=== PATIENT | female | born 1990 | race Caucasian/White ===

== ENCOUNTER → 2016-12-30 | Outpatient (CLI) | payer BC ==
[~2016-12-30] MED LIST: IBUP-1427 PO; MTR600X PO; OXYC-57 PO; PREN1TAB29
[2016-12-30 20:15] LABS: URINE APPEARANCE CLEAR (CLEAR); URINE BILIRUBIN NEG (NEG); URINE COLOR YELLOW; URINE EPITHELIAL CELL AUTO >30 /lpf (0-5); URINE NITRITE NEG (NEG); URINE SPECIFIC GRAVITY 1.012 (1.000-1.030); UROBILINOGEN NEG (NEG)
[2016-12-30 20:19] LABS: MANUAL MICROSCOPIC REQUIRED? NO; REVIEW REQ? YES
== END | disposition home or self-care (01) ==
LOC: C.LABSPEC 19:11
PROVIDERS: ATTEND Obstetrics & Gynecology
DX: Z34.03 Encounter for supervision of normal first pregnancy, third trimester (principal)

== ENCOUNTER → 2017-01-25 | Outpatient (CLI) | payer BC ==
[2017-01-25 13:55] LABS: URINE APPEARANCE CLEAR (CLEAR); URINE BILIRUBIN NEG (NEG); URINE COLOR YELLOW; URINE EPITHELIAL CELL AUTO 20-30 /lpf (0-5); URINE NITRITE NEG (NEG); URINE PH 7.5 (4.5-7.5); URINE SPECIFIC GRAVITY 1.008 (1.000-1.030); UROBILINOGEN NEG (NEG)
[2017-01-25 14:00] LABS: MANUAL MICROSCOPIC REQUIRED? NO; REVIEW REQ? NO
[2017-01-29 00:30] LABS: PARVOVIRUS IgG INDEX 4.9 (<0.9); PARVOVIRUS IgM INDEX 0.1 (<0.9)
== END | disposition home or self-care (01) ==
LOC: C.LAB1850 13:14
PROVIDERS: ATTEND Obstetrics & Gynecology
DX: R39.9 Unspecified symptoms and signs involving the genitourinary system (principal); Z20.9 Contact with and (suspected) exposure to unspecified communicable disease; R79.9 Abnormal finding of blood chemistry, unspecified

== ENCOUNTER → 2017-02-24 | Outpatient (CLI) | payer BC | END | disposition home or self-care (01) | LOC: C.LAB1850 16:11 | PROVIDERS: ATTEND Obstetrics & Gynecology | DX: R79.9 Abnormal finding of blood chemistry, unspecified (principal) ==

== ENCOUNTER → 2017-02-24 | Outpatient (CLI) | payer BC | END | disposition home or self-care (01) | LOC: C.LABSPEC 17:50 | PROVIDERS: ATTEND Obstetrics & Gynecology | DX: Z34.03 Encounter for supervision of normal first pregnancy, third trimester (principal) ==

== ENCOUNTER 2017-03-25 20:25 | Inpatient (IN) | payer BC ==
[~2017-03-25] VITALS: Ht 154.9 cm; Wt 71.2 kg
[2017-03-25] MEDS ORDERED: LACTATED RINGER'S 1000ML 1,000 ML IV PRN (20:52)
[2017-03-25] MEDS: LACTATED RINGER'S 1000ML 1,000 ML IV SCH ×2 (21:11→23:04)
[2017-03-25] MEDS ORDERED: PREN1TAB29 (21:12)
[2017-03-25 21:13] LABS: HEMATOCRIT 36.5 % (37-47); MEAN CELL VOLUME 87.5 fL (80-100); MEAN CORPUSCULAR HEMOGLOBIN 29.7 pg (25-34); MEAN PLATELET VOLUME 11.6 fL (7.4-10.4); PLATELET COUNT 143 K/uL (130-400); RED BLOOD COUNT 4.17 M/uL (4.2-5.4)
[2017-03-25 21:14] VITALS: Ht 154.9 cm; Wt 71.2 kg
[2017-03-25] MEDS ORDERED: BUPIVACAINE 0.25% 30 ML VIAL ONE (21:21)
[2017-03-25] MEDS ORDERED: EpHEDrine SULFATE INJ 50 MG/ML AMP ONE (21:21)
[2017-03-25] MEDS ORDERED: FENTANYL 2MCG/ML ROPIV 1.25MG/ML 100ML BAG EPI ONE (21:22)
[2017-03-25] MEDS ORDERED: FENTANYL CITRATE INJ 50 MCG/1 ML 2 ML VIAL ONE (21:22)
[2017-03-25] MEDS ORDERED: LACTATED RINGER'S 1000ML 500 ML IV PRN (22:07)
[2017-03-25] MEDS ORDERED: ONDANSETRON INJ 2 MG/ML 2 ML VIAL IV PRN (22:15)
[2017-03-25] MEDS ORDERED: NALOXONE HCL INJ 0.4 MG/1 ML VIAL/CARP IV PRN (22:15)
[2017-03-25] MEDS ORDERED: DiphenhydrAMINE HCL 50 MG/ML VIAL IV PRN (22:15)
[2017-03-25] MEDS ORDERED: NALBUPHINE HCL INJ 10 MG/ML AMP IV PRN (22:15)
[2017-03-25] MEDS ORDERED: EpHEDrine SULFATE INJ 50 MG/ML AMP IV PRN (22:15)
[2017-03-26] MEDS: FENTANYL 2MCG/ML ROPIV 1.25MG/ML 100ML BAG EPI PRN ×2 (06:53→13:36)
[2017-03-26] MEDS ORDERED: LACTATED RINGER'S 1000ML 500 ML IV PRN (09:37)
[2017-03-26] MEDS ORDERED: OXYTOCIN 30 UNITS/500ML NSS IV PRN (09:45)
[2017-03-26] MEDS: LACTATED RINGER'S 1000ML 1,000 ML IV SCH ×2 (11:25→15:24)
[2017-03-26] MEDS ORDERED: LACTATED RINGER'S 1000ML 1,000 ML IV SCH ×2 (16:51→18:08)
[2017-03-26] MEDS ORDERED: CITRIC ACID/SODIUM CITRATE 15 ML UDC PO ONE (17:00)
[2017-03-26] MEDS ORDERED: OXYTOCIN INJ 10 UNITS/ML VIAL ONE (17:14)
[2017-03-26] MEDS ORDERED: LIDOCAINE/EPINEPHRINE 2% 1:200,000 20 ML SDV ONE (17:14)
[2017-03-26] MEDS ORDERED: CEFAZOLIN IV 2,000 MG in DEXTROSE 5% 50ML 50 ML IV ONE (17:15)
[2017-03-26] MEDS ORDERED: ONDANSETRON INJ 2 MG/ML 2 ML VIAL ONE (17:29)
[2017-03-26] MEDS ORDERED: MoRPHine SULFATE PF 1 MG/ML 10 ML AMP/VIAL ONE (17:48)
[2017-03-26] MEDS ORDERED: PHENYLEPHRINE 100MCG/ML 5ML SYR ONE (17:55)
--- NOTE | 2017-03-26 18:11 | [facility] Post Operative Brief Note ---
Immediate Operative Summary Operative Date March 26, 2017. Pre-Operative Diagnosis FTP Post-Operative Diagnosis FTP Procedure(s) Performed Low segment transverse C/S Surgeon Tc Lining Inserter Surgeon(s) TRAY Balbuena Estimated Blood Loss 800ml Findings OP Specimens Cord gases Drains Solorzano Anesthesia Epidural Complication(s) None Disposition L&D
[2017-03-26] MEDS ORDERED: MEPERIDINE HCL 50 MG/ML CARP IV PRN (18:15)
[2017-03-26] MEDS ORDERED: SUPERCREAM 0.870 % 15GM JAR EXT PRN (18:15)
[2017-03-26] MEDS ORDERED: LANOLIN OINT EXT PRN ×2 (18:15)
[2017-03-26] MEDS ORDERED: HYDROCORTISONE ACETATE 25 MG SUPP PR PRN (18:15)
[2017-03-26] MEDS ORDERED: PROMETHAZINE HCL INJ 25 MG in SODIUM CHLORIDE 0.9% 50ML 50 ML IV PRN (18:15)
[2017-03-26] MEDS ORDERED: MAGNESIUM HYDROXIDE SUSP 30 ML UDC PO PRN (18:15)
[2017-03-26] MEDS ORDERED: SENNA 8.6 MG TAB PO PRN (18:15)
[2017-03-26] MEDS ORDERED: BENZOCAINE 20% AER SPR 82.5 GM CAN EXT PRN (18:15)
[2017-03-26] MEDS ORDERED: MEPERIDINE HCL 25 MG/ML CARP ONE (18:20)
--- NOTE | 2017-03-26 18:27 | Anesthesiology Progress Note ---
Anesthesia Post Op Note Date & Time March 26, 2017 at 18:26 Vital Signs Pain Intensity: 0.0 Notes Mental Status: alert / awake / arousable, participated in evaluation Pt Amnestic to Procedure: Yes Nausea / Vomiting: adequately controlled Pain: adequately controlled Airway Patency, RR, SpO2: stable & adequate BP & HR: stable & adequate Hydration State: stable & adequate Neuraxial Anesthesia: was administered, sensory block is resolving Anesthetic Complications: no major complications apparent
[2017-03-26] MEDS ORDERED: FENTANYL CITRATE INJ 50 MCG/1 ML 2 ML VIAL IV PRN (18:30)
[2017-03-26] MEDS ORDERED: CONTINUE MEDICATION ONE (18:30)
[2017-03-26] MEDS ORDERED: MoRPHine SULFATE PF 1 MG/ML 10 ML AMP/VIAL EPI PRN (18:30)
[2017-03-26] MEDS ORDERED: ONDANSETRON INJ 2 MG/ML 2 ML VIAL IV PRN ×2 (18:30→19:00)
[2017-03-26] MEDS ORDERED: NO NARCOTICS OR SEDATIVES SCH (18:30)
[2017-03-26] MEDS ORDERED: ATROPINE SULFATE 0.1 MG/ML 5ML SYR IV PRN (18:30)
[2017-03-26] MEDS ORDERED: EpHEDrine SULFATE INJ 50 MG/ML AMP IV PRN (18:30)
[2017-03-26] MEDS ORDERED: MEPERIDINE HCL 25 MG/ML CARP IV PRN ×2 (18:30)
[2017-03-26] MEDS ORDERED: KETOROLAC TROMETHAMINE 30 MG/ML VIAL ONE (18:38)
[2017-03-26] MEDS: OXYTOCIN INJ 20 UNITS in LACTATED RINGER'S 1000ML 1,000 ML IV SCH (18:44)
--- NOTE | 2017-03-26 20:37 | HISTORY & PHYSICAL EXAMINATION ---
DATE OF ADMISSION: 03/25/2017 HISTORY OF PRESENT ILLNESS: Holly was admitted by Dr. Tenorio in labor and delivery. At 8:30 in the morning on Tuesday, I received sign out. She stated patient was 7 cm and was not on Pitocin, but had made progress to 7 cm. When I checked, patient was more close to 5 cm on my assessment. We could assess contractions and eventually an IUPC was placed. We did recommend Pitocin as well for augmentation as her contractions spaced. Unfortunately patient got no further than 8 cm and really from a period of noon to 5 p.m. really made no significant progress. There was increase in caput and I recommended , patient agreed. PAST MEDICAL HISTORY: She is healthy. There is Holly's first . She is group B strep negative, AB positive, 40 weeks and 5 days. PAST OBSTETRICAL HISTORY: Never been . PAST SURGICAL HISTORY: No major surgeries. MEDICATIONS: None. DRUG ALLERGIES: None. REVIEW OF SYSTEMS: Negative. PHYSICAL EXAMINATION: VITAL SIGNS: Stable. She is afebrile. CHEST: Clear. CARDIOVASCULAR: Normal rate and rhythm. No audible murmur. ABDOMEN: Gravid. CERVIX: 8 cm, zero to -1 station. heart rate tracing is reassuring type category 1; however, there has been increase in the baseline from the 140s to 160s with reasonable accelerations. IMPRESSION AND PLAN: I did give the option of continuing labor at this stage, so I feel she has made the criteria for failure to progress also with a slight increase in maternal temperature and an increase in heart rate; I have recommended section, she agrees. I discussed the risks including but not limited to the risks of bleeding, infection, injury to bowel, bladder, ureter, vessels, deep vein thrombosis, damage to the baby. We also discussed increased infectious risks in prolonged labor situations. TD
[2017-03-26 20:45] VITALS: BP 138/81; PULSE 89; TEMP 36.9; O2SAT 95
[2017-03-26] MEDS: SIMETHICONE 80 MG CHEW PO SCH (20:45)
[2017-03-26] MEDS: DOCUSATE SODIUM 100 MG CAP PO SCH (20:45)
[2017-03-26 21:30] VITALS: O2SAT 94
[2017-03-26 21:45] VITALS: BP 129/83; PULSE 101; TEMP 36.8; O2SAT 94
[2017-03-26 22:29] VITALS: O2SAT 97
[2017-03-26 22:45] VITALS: BP 128/83; PULSE 99; TEMP 36.8; O2SAT 98
[2017-03-27] VITALS (21 sets, daily range): BP systolic 108–124; BP diastolic 68–84; PULSE 92–120; TEMP 36.4–37.1; O2SAT 90–100
[2017-03-27] MEDS: OXYTOCIN INJ 20 UNITS in LACTATED RINGER'S 1000ML 1,000 ML IV SCH (03:21)
[2017-03-27] MEDS: KETOROLAC TROMETHAMINE 30 MG/ML VIAL IV. PRN ×2 (03:43→09:21)
--- NOTE | 2017-03-27 04:08 | OPERATIVE REPORT ---
DATE OF OPERATION: 03/26/2017 PREOPERATIVE DIAGNOSIS: Failure to progress in labor. POSTOPERATIVE DIAGNOSIS: Failure to progress in labor. PROCEDURE: Low segment transverse section. SURGEON: Mars Montez MD BELT SEWER: TRAY Balbuena. ESTIMATED BLOOD LOSS: 800 mL. FINDINGS: Baby was in occiput posterior position. Normal pelvic anatomy otherwise. SPECIMENS: Cord gases. DRAINS: Solorzano catheter. ANESTHETIC: Epidural. COMPLICATIONS: None. DISPOSITION: L and D. DESCRIPTION OF PROCEDURE: Holly had her epidural anesthesia increased and Solorzano had been inserted by nursing. She was prepped and draped in supine position with a leftward tilt. IV Ancef given. Incision area was found to be and found be adequate. Pfannenstiel incision made with a scalpel, dissecting down through subcutaneous fat to the fascia in the midline. Fascia dissected laterally with curved Walker scissors and then superiorly inferiorly away from the rectus muscles. Rectus muscle split, peritoneal cavity entered in a superior location, opening expanded to allow exposure. Bladder retractor placed. Metzenbaums used to dissect away the bladder flap. Bladder retractor repositioned. Scalpel used to make a low transverse incision on the uterus. Entry into the uterus was then done bluntly with the transfer and pumphouse operator's finger and the incision at the uterus was extended with the transfer and pumphouse operator's finger in the usual fashion. Baby was in occiput posterior position and was delivered by flexion of the head and then pressure on the abdomen. Live vigorous . Cord gases obtained. Cord blood obtained. Placenta removed. IV Pitocin started and uterus firmed up. Uterus was then closed in a 2-layer fashion, running 0 Monocryl locked and second reinforcing 0 Monocryl. There was no extension noted. Urine was clear at this stage of the procedure. After generous irrigation and suction of the cul-de-sac and anterior bladder regions, uterus was placed back in the peritoneal cavity. On reinspection, hemostasis was excellent. Fascia closed with 0 Vicryl, subcutaneous fat irrigated and closed with 3-0 Vicryl and skin closed with 4-0 subcuticular Monocryl. Sponge and instrument counts correct. I attest to the content of the Intraoperative Record and any orders documented therein. Any exceptions are noted below. MTDD
[2017-03-27 06:34] LABS: HEMATOCRIT 25.4 % (37-47); MEAN CELL VOLUME 88.2 fL (80-100); MEAN CORPUSCULAR HEMOGLOBIN 29.5 pg (25-34); MEAN CORPUSCULAR HGB CONC 33.5 g/dl (32-36); MEAN PLATELET VOLUME 10.7 fL (7.4-10.4); PLATELET COUNT 104 K/uL (130-400); RED BLOOD COUNT 2.88 M/uL (4.2-5.4); WHITE BLOOD COUNT 14.75 K/uL (4.8-10.8)
[2017-03-27 07:21] LABS: BASO % 0.1 %; BASO ABS # 0.01 K/uL (0-0.2); COMPLETE YES; EOS % 0.1 %; IG% 0.3 %; LYMPH ABS # 2.06 K/uL (1.2-3.4); NEUT % 81.5 %
--- NOTE | 2017-03-27 07:46 | Progress Note ---
Subjective March 27, 2017. Subjective conversation w/ patient, physical exam, chart review, lab review Voiding: abraham catheter in place Passing Gas: No Lochia: Small Objective Vital Signs Date Time Temp Pulse Resp B/P Pulse Ox O2 Delivery O2 Flow Rate FiO2 03/27/17 06:26 18 94 03/27/17 05:30 16 90 03/27/17 04:30 16 90 03/27/17 03:48 36.4 120 18 122/77 93 Room Air 03/27/17 03:30 20 95 03/27/17 02:40 18 90 03/27/17 01:48 18 97 03/27/17 01:00 16 90 03/27/17 00:14 18 97 03/27/17 00:12 92 Room Air 03/27/17 00:08 36.6 92 18 124/84 97 Room Air 03/27/17 00:00 16 95 03/26/17 22:45 18 98 03/26/17 22:45 36.8 99 18 128/83 98 Room Air 03/26/17 22:29 18 97 03/26/17 21:45 36.8 101 18 129/83 94 Room Air 03/26/17 21:30 20 94 03/26/17 20:45 20 95 03/26/17 20:45 95 Room Air 03/26/17 20:45 36.9 89 20 138/81 95 Room Air Physical Exam General Appearance: WELL-APPEARING Respiratory/Chest: lungs clear Cardiovascular: regular rate, rhythm Abdomen: non tender Fundus: Firm Incision Description: Clean, Dry & Intact Extremities: no calf tenderness Laboratory Results Last 24 Hours Test 03/27/17 06:07 White Blood Count 14.75 K/uL Red Blood Count 2.88 M/uL Hemoglobin 8.5 g/dL Hematocrit 25.4 % Mean Corpuscular Volume 88.2 fL Mean Corpuscular Hemoglobin 29.5 pg Mean Corpuscular Hemoglobin Concent 33.5 g/dl Platelet Count 104 K/uL Mean Platelet Volume 10.7 fL Neutrophils (%) (Auto) 81.5 % Lymphocytes (%) (Auto) 14.0 % Monocytes (%) (Auto) 4.0 % Eosinophils (%) (Auto) 0.1 % Basophils (%) (Auto) 0.1 % Neutrophils # (Auto) 12.02 K/uL Lymphocytes # (Auto) 2.06 K/uL Monocytes # (Auto) 0.59 K/uL Eosinophils # (Auto) 0.02 K/uL Basophils # (Auto) 0.01 K/uL RDW Standard Deviation 43.8 fL RDW Coefficient of Variation 13.6 % Immature Granulocyte % (Auto) 0.3 % Immature Granulocyte # (Auto) 0.05 K/uL Red Blood Cell Morphology Unremarkable Assessment and Plan Post-Op Day#: 1 Continue Routine Care: Somewhat tachycardic. Hb 8.5 Follow closely. DONNA
[2017-03-27] MEDS: PRENATAL VITAMIN TAB PO SCH (09:31)
[2017-03-27] MEDS: DOCUSATE SODIUM 100 MG CAP PO SCH ×2 (09:32→19:57)
[2017-03-27] MEDS: SIMETHICONE 80 MG CHEW PO SCH ×4 (09:32→19:58)
[2017-03-27] MEDS ORDERED: OXYCODONE/ACETAMINOPHEN 5-325 TAB PO PRN (11:45)
[2017-03-27] MEDS ORDERED: ONDANSETRON INJ 2 MG/ML 2 ML VIAL IV PRN (11:45)
[2017-03-27] MEDS ORDERED: DC INTRASPINAL MORPHINE SCH (11:45)
[2017-03-27] MEDS ORDERED: ZOLPIDEM TARTRATE 5 MG TAB PO PRN (11:45)
[2017-03-27] MEDS ORDERED: KETOROLAC TROMETHAMINE 30 MG/ML VIAL IV. PRN (11:45)
[2017-03-27] MEDS ORDERED: MEPERIDINE HCL 50 MG/ML CARP IV PRN ×2 (11:45)
[2017-03-27] MEDS ORDERED: DiphenhydrAMINE HCL 50 MG/ML VIAL IV PRN (11:45)
[2017-03-27] MEDS: IBUPROFEN 600 MG TAB PO PRN ×2 (13:03→19:58)
[2017-03-27] MEDS: OXYCODONE/ACETAMINOPHEN 5-325 TAB PO PRN (13:03)
[2017-03-27] MEDS ORDERED: BISACODYL 5 MG TABEC PO ONE (22:00)
[2017-03-28] MEDS: IBUPROFEN 600 MG TAB PO PRN ×5 (03:26→21:41)
--- NOTE | 2017-03-28 07:17 | Progress Note ---
Subjective March 28, 2017. Subjective conversation w/ patient, physical exam, lab review Ambulation: ambulating normally Voiding: no voiding problems Diet Tolerance: Regular Diet Lochia: Small Feeding Type: Breast Feeding Pain: improves with med Comment: Patient was seen at the bedside. No acute event overnight. Review of Systems Constitutional: No fever Respiratory: No cough, No shortness of breath Cardiac: No chest pain Breast: No breast lump Abdomen: No nausea, No pain, No vomiting Female : No dysuria, No urinary frequency Denies headache Objective Vital Signs Date Time Temp Pulse Resp B/P Pulse Ox O2 Delivery O2 Flow Rate FiO2 03/27/17 23:54 Room Air 03/27/17 23:51 36.5 102 18 108/72 Room Air 03/27/17 15:35 36.8 102 20 108/68 Room Air 03/27/17 15:35 Room Air 03/27/17 11:30 16 99 03/27/17 10:15 18 99 03/27/17 09:15 18 97 03/27/17 08:22 100 Room Air 03/27/17 08:18 37.1 118 18 120/80 Room Air 03/27/17 08:15 18 97 03/27/17 07:15 18 100 Physical Exam General Appearance: WELL-APPEARING, WD/WN, NO APPARENT DISTRESS Respiratory/Chest: chest non-tender, lungs clear, normal breath sounds, no respiratory distress Cardiovascular: regular rate, rhythm Abdomen: normal bowel sounds, non tender, soft Fundus: Firm, Relation to Umbilicus (abdomen was distended most likely secondary to gas, difficult to appreciate the fundus) Incision Description: Clean, Dry & Intact Extremities: non-tender, no pedal edema, no calf tenderness Laboratory Results Last 24 Hours Test 03/28/17 06:00 Medications Current Inpatient Medications Medications (Trade) Dose Ordered Sig/Emmett Route Start Time Stop Time Status Last Admin Dose Admin Ketorolac Tromethamine (Toradol Inj) 30 mg Q6H PRN IV. 03/27/17 11:45 04/01/17 11:44 Meperidine HCl (Demerol Inj) 75 mg Q4H PRN IV 03/27/17 11:45 04/10/17 11:44 Oxycodone/ Acetaminophen (Percocet 5-325mg Tab) 1 tab Q4H PRN PO 03/27/17 11:45 04/10/17 11:44 03/27/17 13:03 1 TAB Oxycodone/ Acetaminophen (Percocet 5-325mg Tab) 2 tab Q4H PRN PO 03/27/17 11:45 04/10/17 11:44 03/28/17 03:27 2 TAB Ibuprofen 600 mg 600 mg Q4H PRN PO 03/26/17 18:15 04/25/17 18:14 03/28/17 03:26 600 MG Promethazine HCl/ Sodium Chloride (Phenergan Inj/ Nss 50ml) 51 ml @ 204 mls/hr Q4H PRN IV 03/26/17 18:15 04/25/17 18:14 Prenat Multivit/ Stereotyper Helper/Iron/Folic Ac ( Vitamin Tab) 1 tab DAILY PO 03/27/17 08:00 04/26/17 07:59 03/27/17 09:31 1 TAB Bisacodyl (Dulcolax Supp) [address] 03/28/17 18:15 04/27/17 18:14 Docusate Sodium (coLACE CAP) 100 mg BID PO 03/26/17 20:00 04/25/17 19:59 03/27/17 19:57 100 MG Magnesium Hydroxide (Milk Of Magnesia Susp) 30 ml HS PRN PO 03/26/17 18:15 04/25/17 18:14 Cocaine HCl (Supercream 0.870% Cr) BID PRN EXT 03/26/17 18:15 04/09/17 18:14 Lanolin (Lanolin Oint) PRN PRN EXT 03/26/17 18:15 04/25/17 18:14 Hydrocortisone Acetate (Anusol Hc Supp) [address] 03/26/17 18:15 04/25/17 18:14 Benzocaine (Dermoplast Aero Spr) 1 appln PRN PRN EXT 03/26/17 18:15 04/25/17 18:14 Zolpidem Tartrate (Ambien Tab) 5 mg HSZ PRN PO 03/27/17 11:45 04/26/17 11:44 Simethicone (Mylicon Chew Tab) 80 mg QID PO 03/26/17 20:51 04/25/17 20:59 03/27/17 19:58 80 MG Diphenhydramine HCl (Benadryl Cap) 25 mg QID PRN PO 03/27/17 11:45 04/26/17 11:44 Diphenhydramine HCl (Benadryl Inj) 25 mg QID PRN IV 03/27/17 11:45 04/26/17 11:44 Senna (Senokot Tab) 17.2 mg HS PRN PO 03/26/17 18:15 04/25/17 18:14 Ondansetron HCl (Zofran Inj) 4 mg Q4H PRN IV 03/26/17 19:00 04/25/17 18:59 Meperidine HCl (Demerol Inj) 50 mg Q4H PRN IV 03/27/17 11:45 04/10/17 11:44 Assessment and Plan Post-Op Day#: 2 Continue Routine Care: A/P: This is a 26 y/o female, , s/p . She is ambulating and clinically stable. Plan: - Vitals signs are reviewed and WNL (Tmax 36.8 ) - Last Hgb is 8.5 (this morning lab pending) - Blood type AB+, GBS neg, Rubella Immune - Routine care - Encourage ambulation, monitor and control pain with medication as needed , continue with regular diet as tolerated and monitor lochia - Stool softeners and sitz bath recommended - Encourage breast feeding and educate about breast feeding Resident Physician Supervision Note: I interviewed and examined the patient. Discussed with Dr. Freeman and agree with findings and plan as documented in the note. Any exceptions or clarifications are listed here: [None] Documented By: Masr Montez
[2017-03-28 07:39] VITALS: BP 114/81; PULSE 105; TEMP 36.9; O2SAT 99
[2017-03-28] MEDS: SIMETHICONE 80 MG CHEW PO SCH ×4 (08:12→20:19)
[2017-03-28] MEDS: OXYCODONE/ACETAMINOPHEN 5-325 TAB PO PRN ×2 (08:13→21:40)
[2017-03-28] MEDS: PRENATAL VITAMIN TAB PO SCH (08:34)
[2017-03-28] MEDS: DOCUSATE SODIUM 100 MG CAP PO SCH ×2 (08:34→20:19)
[2017-03-28 09:02] LABS: HEMATOCRIT 26.3 % (37-47)
[2017-03-28 15:40] VITALS: BP 112/77; PULSE 97; TEMP 36.6; O2SAT 99
[2017-03-28] MEDS ORDERED: BISACODYL 10 MG SUPP PR PRN (18:15)
[2017-03-28 23:45] VITALS: BP 109/75; PULSE 89; TEMP 36.4; O2SAT 98; O2SAT 99
[2017-03-29] MEDS: IBUPROFEN 600 MG TAB PO PRN ×2 (02:56→07:54)
--- NOTE | 2017-03-29 06:28 | Progress Note ---
Subjective March 29, 2017. Subjective conversation w/ patient, physical exam, lab review Ambulation: ambulating normally Voiding: no voiding problems Passing Gas: Yes Diet Tolerance: Regular Diet Lochia: Small Feeding Type: Breast Feeding Pain: improves with med Comment: Patient was seen at the bedside. No acute event overnight. Review of Systems Constitutional: No fever Respiratory: No cough, No shortness of breath Cardiac: No chest pain Breast: No breast lump Abdomen: No nausea, No pain, No vomiting Female : No dysuria, No urinary frequency Denies headache Objective Vital Signs Date Time Temp Pulse Resp B/P Pulse Ox O2 Delivery O2 Flow Rate FiO2 03/28/17 23:45 36.4 89 20 109/75 98 Room Air 03/28/17 23:45 99 Room Air 03/28/17 15:40 36.6 97 18 112/77 99 Room Air 03/28/17 15:40 99 Room Air 03/28/17 07:39 36.9 105 18 114/81 99 Room Air Physical Exam General Appearance: WELL-APPEARING, WD/WN, NO APPARENT DISTRESS Respiratory/Chest: chest non-tender, lungs clear, normal breath sounds, no respiratory distress Cardiovascular: regular rate, rhythm Abdomen: normal bowel sounds, non tender, soft Fundus: Firm, Relation to Umbilicus (at the U) Incision Description: Clean, Dry & Intact Extremities: non-tender, no pedal edema, no calf tenderness Laboratory Results Last 24 Hours Test 03/28/17 08:53 Hemoglobin 8.7 g/dL Hematocrit 26.3 % Medications Current Inpatient Medications Medications (Trade) Dose Ordered Sig/Emmett Route Start Time Stop Time Status Last Admin Dose Admin Ketorolac Tromethamine (Toradol Inj) 30 mg Q6H PRN IV. 03/27/17 11:45 04/01/17 11:44 Meperidine HCl (Demerol Inj) 75 mg Q4H PRN IV 03/27/17 11:45 04/10/17 11:44 Oxycodone/ Acetaminophen (Percocet 5-325mg Tab) 1 tab Q4H PRN PO 03/27/17 11:45 04/10/17 11:44 03/28/17 21:40 1 TAB Oxycodone/ Acetaminophen (Percocet 5-325mg Tab) 2 tab Q4H PRN PO 03/27/17 11:45 04/10/17 11:44 03/28/17 03:27 2 TAB Ibuprofen 600 mg 600 mg Q4H PRN PO 03/26/17 18:15 04/25/17 18:14 03/29/17 02:56 600 MG Promethazine HCl/ Sodium Chloride (Phenergan Inj/ Nss 50ml) 51 ml @ 204 mls/hr Q4H PRN IV 03/26/17 18:15 04/25/17 18:14 Prenat Multivit/ [place]/Iron/Folic Ac ( Vitamin Tab) 1 tab DAILY PO 03/27/17 08:00 04/26/17 07:59 03/28/17 08:34 1 TAB Bisacodyl (Dulcolax Supp) 10 mg PRN PRN [place] 03/28/17 18:15 04/27/17 18:14 Docusate Sodium (coLACE CAP) 100 mg BID PO 03/26/17 20:00 04/25/17 19:59 03/28/17 20:19 100 MG Magnesium Hydroxide (Milk Of Magnesia Susp) 30 ml HS PRN PO 03/26/17 18:15 04/25/17 18:14 Cocaine HCl (Supercream 0.870% Cr) BID PRN EXT 03/26/17 18:15 04/09/17 18:14 Lanolin (Lanolin Oint) PRN PRN EXT 03/26/17 18:15 04/25/17 18:14 Hydrocortisone Acetate (Anusol Hc Supp) 25 mg BID PRN [place] 03/26/17 18:15 04/25/17 18:14 Benzocaine (Dermoplast Aero Spr) 1 appln PRN PRN EXT 03/26/17 18:15 04/25/17 18:14 Zolpidem Tartrate (Ambien Tab) 5 mg HSZ PRN PO 03/27/17 11:45 04/26/17 11:44 Simethicone (Mylicon Chew Tab) 80 mg QID PO 03/26/17 20:51 04/25/17 20:59 03/28/17 20:19 80 MG Diphenhydramine HCl (Benadryl Cap) 25 mg QID PRN PO 03/27/17 11:45 04/26/17 11:44 Diphenhydramine HCl (Benadryl Inj) 25 mg QID PRN IV 03/27/17 11:45 04/26/17 11:44 Senna (Senokot Tab) 17.2 mg HS PRN PO 03/26/17 18:15 04/25/17 18:14 Ondansetron HCl (Zofran Inj) 4 mg Q4H PRN IV 03/26/17 19:00 04/25/17 18:59 Meperidine HCl (Demerol Inj) 50 mg Q4H PRN IV 03/27/17 11:45 04/10/17 11:44 Assessment and Plan Post-Op Day#: 3 Continue Routine Care: A/P: This is a 26 y/o female, , s/p . She is ambulating and clinically stable to discharge. - Vital signs are reviewed and WNL (Tmax 36.9 ) - Last Hgb 8.7 - Blood type AB+, GBS neg, Rubella Immune - No signs of depression. - Routine care - Discussed resting, feeding, pain control, mastitis, control, follow up in 6 weeks and reasons to call sooner, if necessary. - Continue with pain medication as needed, and continue vitamins. - Encourage breast feeding and educate about breast feeding - Patient understands and keen for home. - Plan to discharge home Resident Physician Supervision Note: I interviewed and examined the patient. Discussed with Dr. Freeman and agree with findings and plan as documented in the note. Any exceptions or clarifications are listed here: [None] Documented By: Kingston Mccabe
--- NOTE | 2017-03-29 06:29 | Discharge Instructions ---
Discharge Instructions Date of Service March 28, 2017. Admission Reason for Admission: Normal Labor And Delivery Discharge Discharge Diagnosis / Problem: s/p Discharge Goals Goal(s): Routine recovery after Medications Continue Dispensed Medications: supercream, dermaplast, tucks, lansinoh Activity Recommendations Activity Limitations: as noted below . Instructions / Follow-Up Instructions / Follow-Up ACTIVITY RECOMMENDATIONS: * Gradual return to full activity over the next 2-3 weeks. * No lifting - nothing heavier than baby over the next 2-3 weeks. * Do not engage in vigorous exercise, sexual activity or sports until cleared by your physician. * Do not drive or operate any motorized equipment until cleared by your physician. * You may shower/bathe daily. MEDICATIONS: For discomfort or pain, you may use Acetaminophen (Tylenol), Ibuprofen (Advil), or Naproxen (Aleve) following the package directions. For constipation you may use Colace following the package directions. BREAST CARE: If you are not breast feeding: * Wear a supportive bra 24 hours a day for one to two weeks. * Avoid stimulating your breasts and nipples as much as possible during the first few weeks after delivery. * When taking a shower, have the warm water hit your back, not breasts. * When your breasts feel full, apply ice packs. Usually three to four times a day helps ease the discomfort. * Take a mild pain medication (Tylenol / Motrin) when you are uncomfortable. If breast feeding: * Use breast milk to lubricate nipples. Lansinoh cream may be used for sore nipples. You do not need to remove cream prior to breast feeding. If using a different brand of cream, check the label for directions regarding removal of cream prior to nursing. * Wear a supportive bra. * If having problems with breasts or breast feeding, call a investigations consultant or your health care provider. SPECIAL CARE INSTRUCTIONS: When you are discharged from the hospital, it is important for you to follow the instructions listed below: * During the first week at home, you should be able to care for yourself and your baby. In addition, the usual light household activities are encouraged. * Limit your activities to the way you feel. Do not try to clean the house or move furniture. Be sensible. * If you actively engage in sports and have done so up until the time of your delivery, you may resume these activities as soon as you feel able. This may take up to one month or even longer. Use good judgment. * Continue to take your vitamins for at least six weeks after the of your baby. * Your diet need not be limited unless you were on a special diet before your delivery. Breast-feeding mothers need around 2500 calories per day and at least 64-80 ounces of fluid per day (8 to 10 glasses). * You should eat foods from the four major food groups. Crash diets or fad diets are to be avoided. Eating lean meats, fresh fruits and vegetables, low-fat dairy products, high fiber foods and a regular exercise program, will help you get back to your pre- weight without putting your health at risk. * Constipation is sometimes a problem after delivery. Take a mild laxative as needed. If breast feeding, Milk of Magnesia is acceptable to use. You may use a suppository or Fleets enema. * A daily shower or tub bath is suggested. Wash incision daily with warm soapy water and pat dry. It doesn't need to be covered unless drainage is present. * A bloody vaginal discharge will usually continue until around four weeks . A small amount of bleeding may continue for as long as six weeks. Vaginal discharge changes from the bright red bleeding after delivery to pink then brownish and finally yellowish-pink before becoming white and disappearing. * Bleeding may increase with activity. Your first period may come in 4-8 weeks. If you are breast feeding, your period may be delayed even longer. * [place] (sex) can begin whenever both you and your partner feel comfortable and do not have any form of genital infection. It is recommended that you wait at least six weeks for internal and external healing to occur. If you have questions, please talk to your health care practitioner. A condom should be used to prevent infection and . * Foreplay, gentle intercourse and lubrication is very important the first several times to prevent pain. A water-based lubricant such as K-Y jelly or Astroglide may be used. * If you have RH negative blood and your baby is RH positive, you will receive RHOGAM by injection prior to discharge. The nurse will give you a card to keep with you that has the date and place that you received RHOGAM after delivery. * During your care, you had a Rubella screen done to check for the presence of rubella antibodies in your blood. If your test was negative, you will receive a Rubella vaccine prior to discharge. This vaccine may cause a fever, soreness at the injection site and flu-like symptoms. If these symptoms persist, notify your health care practitioner. is not advised for one month after a Rubella vaccine. * Verbalizes understanding of car seat law as reviewed with patient nursing. * Car Seat hand-out given and reviewed with patient by nursing. * Shaken baby information reviewed with patient by nursing. Call you doctor if: * Heavy bleeding (saturating several pads an hour) or passing clots the size of your fist. * A fever >101 degrees F (38.3 degrees C) on two occasions four hours apart and /or chills. * Unusual pain in the pelvic or vaginal areas. * Call the doctor for any increased redness, drainage or swelling around the incision and any pain unrelieved by prescribed pain medication. * "Baby Blues" lasting longer than two weeks. If you have any questions or concerns, call your health care practitioner at . FOLLOW UP VISIT: * Please call the office at to schedule a 6 week examination. It is important you keep this appointment. It is important for you to make arrangements for either yearly or twice yearly check-ups thereafter. Current Hospital Diet Patient's current hospital diet: Regular OB Diet Discharge Diet Recommended Diet: Regular Diet Procedures Procedures Performed: Primary lower uterine transverse caesarean section with delivery of live female child at 1742. Pending Studies Studies pending at discharge: no Medical Emergencies . Who to Call and When: Medical Emergencies: If at any time you feel your situation is an emergency, please call [phone] immediately. . Non-Emergent Contact Non-Emergency issues call your: Community Resource Consultant Call Non-Emergent contact if: you have a fever, temperature is above 101 . . "Provider Documentation" section prepared by Chiara Freeman. . VTE Core Measure Inpt VTE Proph given/why not?: Treatment not indicated
[2017-03-29] MEDS ORDERED: OXYC-57 PO ×2 (06:51→09:47)
[2017-03-29] MEDS ORDERED: MTR600X PO (06:51)
[2017-03-29] MEDS: PRENATAL VITAMIN TAB PO SCH (07:53)
[2017-03-29] MEDS: DOCUSATE SODIUM 100 MG CAP PO SCH (07:53)
[2017-03-29] MEDS: SIMETHICONE 80 MG CHEW PO SCH (07:53)
[2017-03-29 08:30] VITALS: BP 123/83; PULSE 86; TEMP 36.7
[2017-03-29] MEDS ORDERED: IBUP-1427 PO (09:47)
[2017-03-29 11:40] VITALS: BP_DIAS 83; PULSE 86; TEMP 36.7
--- NOTE | 2017-04-01 09:34 | DISCHARGE SUMMARY ---
DATE OF OPERATION: 03/29/2017 Holly had a section on 03/26/2017. The operative note has been dictated. She was discharged on 03/29/2017. At that time she was assessed by the team including Dr. Freeman the resident and she was doing well. Specifically, she was ambulating, tolerating an oral diet. Her pain was well controlled. She had no extremity pain and minimal bleeding. PHYSICAL EXAMINATION: VITAL SIGNS: Stable. She was afebrile. ABDOMEN: Incision was clean, dry and intact. EXTREMITY EXAMINATION: Negative. IMPRESSION AND PLAN: Postop day 3 from section, discharged home on appropriate pain medication and told to follow up in the office. TD
== END 2017-03-29 11:40 | disposition home or self-care (01) | DRG 766 ==
LOC: C.OPB 20:25 → C.LD 20:26 → C.OPB 20:57 → C.OBG 03-26 20:50
PROVIDERS: ADMIT Obstetrics & Gynecology; ATTEND Obstetrics & Gynecology
PROC: 10H07YZ Insertion of Other Device into Products of Conception, Via Natural or Artificial Opening (ICD-10-PCS; principal; 2017-03-26 17:15)
PROC: 10D00Z1 Extraction of Products of Conception, Low, Open Approach (ICD-10-PCS; principal; 2017-03-26 17:15)
DX: O62.2 Other uterine inertia (principal); O90.89 Other complications of the puerperium, not elsewhere classified; Z37.0 Single live birth; O48.0 Post-term pregnancy; R11.10 Vomiting, unspecified; O75.89 Other specified complications of labor and delivery; R00.0 Tachycardia, unspecified; Z3A.40 40 weeks gestation of pregnancy

== ENCOUNTER → 2017-06-01 | Outpatient (CLI) | payer BC ==
[~2017-06-01] MED LIST changes: -IBUP-1427 PO
== END | disposition home or self-care (01) ==
LOC: C.LAB1850 14:23
PROVIDERS: ATTEND Obstetrics & Gynecology
DX: Z33.1 Pregnant state, incidental (principal)

== ENCOUNTER → 2017-11-24 | Day surgery (SDC) | payer BC ==
[2017-11-03 15:05] VITALS: Ht 154.9 cm; Wt 62.7 kg
[~2017-11-24] VITALS: Ht 154.9 cm; Wt 62.7 kg
[~2017-11-24] MED LIST changes: +BCPILLS PO; +LIDOCAINE HCL 2% 2 ML VIAL (20MG/ML) ONE; +MIDAZOLAM HCL 1 MG/ML 2ML VIAL ONE; -MTR600X PO; +MULT1CHW39 PO; +ONDANSETRON INJ 2 MG/ML 2 ML VIAL ONE; -OXYC-57 PO; -PREN1TAB29; +PROPOFOL IV EMULSION 10 MG/ML 20 ML VIAL IV ONE
--- NOTE | 2017-11-24 15:24 | Endo History and Physical ---
History & Physical Date of Service: Nov 24, 2017. Chief Complaint: Diarrhea Referring Physician: Latisha Jensen History of Present Illness 27 yo CF who presents for colonoscopy secondary to diarrhea. Past Surgical History Hx Cardiac Surgery: No Hx Internal Defibrillator: No Hx Pacemaker: No Hx Abdominal Surgery: Yes () Hx of Implantable Prosthesis: No Hx Post-Op Nausea and Vomiting: No Hx Cancer Surgery: No Hx Thoracic Surgery: No Hx Orthopedic: No Hx Urinary Tract Surgery: No Family History IBD Social History Smoking Status: Never Smoker Hx Substance Use: No Hx Alcohol Use: Yes ("SOCIALLY") Allergies Coded Allergies: Adhesives (Verified Allergy, Unknown, SKIN TEARS, 11/24/17) NO KNOWN DRUG ALLERGIES (Verified Allergy, Unknown, ., 11/24/17) Current Medications Reported Home Medications Medications Dose Route/Sig Max Daily Dose Days Date Category Multivitamin Gummies Wome (Multiple Vitamins W/ Minerals) 1 Chw Chw 1 Dose PO QPM 11/03/17 Reported Control Pills (Miscellaneous) Tab 1 Tab PO HS 11/03/17 Reported Vital Signs Weight (Kilograms): 62.73 Height (Feet): 5 Height (Inches): 1 Date Time Temp Pulse Resp B/P (MAP) Pulse Ox O2 Delivery O2 Flow Rate FiO2 11/24/17 14:51 37.0 88 18 140/76 (97) 100 Room Air Physical Exam General Appearance: WD/WN, no apparent distress Respiratory/Chest: Auscultation: breath sounds normal Cardiovascular: Heart Auscultation: RRR Abdomen: Bowel Sounds: normal Inspection & Palpation: soft, non-distended, no tenderness, guarding & rebound Assessment and Plan Assessment: 27 yo CF who presents for colonoscopy secondary to diarrhea. Plan: Proceed with colonoscopy.
--- NOTE | 2017-11-24 16:02 | Discharge Instructions ---
Endoscopy Patient Instructions Date / Procedure(s) Performed Nov 24, 2017. Colonoscopy Allergy Information Coded Allergies: Adhesives (Verified Allergy, Unknown, SKIN TEARS, 11/24/17) NO KNOWN DRUG ALLERGIES (Verified Allergy, Unknown, ., 11/24/17) Discharge Date / Findings Nov 24, 2017. Random colon biopsies Stool studies collected Medication Instructions OK to resume all medications today as prescribed Reported Home Medications Medications Dose Route/Sig Max Daily Dose Days Date Category Multivitamin Gummies Wome (Multiple Vitamins W/ Minerals) 1 Chw Chw 1 Dose PO QPM 11/03/17 Reported Control Pills (Miscellaneous) Tab 1 Tab PO HS 11/03/17 Reported Provider Instructions Activity Restrictions - No exercising or heavy lifting for 24 hours. - Do not drink alcohol the day of the procedure. - Do not drive a car or operate machinery until the day after the procedure. - Do not make any important decisions or sign important papers in 24 hours after the procedure. Following Day: - Return to full activity which may include returning to work/school. Diet Start your diet with liquids and light foods (jello, soup, juice, toast). Then eat your usual diet if not nauseated. Treatment For Common After Affects For mild abdominal pain, bloating, or excessive gas: - Rest - Eat lightly - Lie on right side Follow-Up Information Follow-up with Latisha Jensen as scheduled Anesthesia Information What You Should Know You have had a procedure that required some medicine to reduce anxiety and discomfort. This treatment is called moderate sedation. After receiving the treatment, you may be sleepy, but you will be able to breathe on your own. The effects of the treatment may last for several hours. Follow these instructions along with Activity/Diet recommendations noted above: * Do NOT do anything where dizziness or clumsiness would be dangerous. * Rest quietly at home today, then you can be up and about tomorrow. * Have a responsible person stay with you the rest of today. * You may have had an I.V. today. If so, you may take the dressing off later today. Recommendations Call your doctor if: * Trouble breathing * Continuous vomiting for more than 24 hours * Temperature above 101 degrees * Severe abdominal pain or bloating * Pain not relieved by pain medicine ordered * There is increased drainage or redness from any incision * A large amount of rectal bleeding greater than 2-3 tablespoons. (If you had a polyp/s removed or have hemorrhoids, a small amount of blood - from the rectum is to be expected.) * You have any unanswered questions or concerns. IN THE EVENT OF A SERIOUS EMERGENCY, GO TO THE NEAREST EMERGENCY ROOM Your discharge instructions were prepared by provider Nacho Weiner. Patient Instructions Signature Page Holly Rico Patient (or Guardian) Signature/Date: I have read and understand the instructions given to me by my caregivers. Caregiver/RN/Doctor Signature/Date: The above-named patient and/or guardian has received patient instructions on this date. + Original Patient Signature Page (only) stays with chart. Please make copy for patient.
--- NOTE | 2017-11-24 16:02 | GI REPORT ---
Procedure Date: 11/24/2017 2:52 PM Procedure: Colonoscopy Indications: Chronic diarrhea Medicines: Monitored Anesthesia Care Complications: No immediate complications. Estimated Blood Loss: Estimated blood loss: none. Procedure: Pre-Anesthesia Assessment: - Prior to the procedure, a History and Physical was performed, and patient medications and allergies were reviewed. The patient's tolerance of previous anesthesia was also reviewed. The risks and benefits of the procedure and the sedation options and risks were discussed with the patient. All questions were answered, and informed consent was obtained. Prior Anticoagulants: The patient has taken no previous anticoagulant or antiplatelet agents. ASA Grade Assessment: I - A normal, healthy patient. After reviewing the risks and benefits, the patient was deemed in satisfactory condition to undergo the procedure. After I obtained informed consent, the scope was passed under direct vision. Throughout the procedure, the patient's blood pressure, pulse, and oxygen saturations were monitored continuously. The scope was introduced through the anus and advanced to the terminal ileum. The colonoscopy was performed without difficulty. The patient tolerated the procedure well. The quality of the bowel preparation was good. The terminal ileum, ileocecal valve, appendiceal orifice, and rectum were photographed. Findings: The perianal and digital rectal examinations were normal. The colon (entire examined portion) appeared normal. Several random biopsies were obtained with cold forceps for histology in the entire colon. Fluid aspiration for stool studies was performed in the entire colon. Impression: - The entire examined colon is normal. - Several random biopsies were obtained in the entire colon. - Fluid aspiration was performed. Recommendation: - Resume previous diet. - Continue present medications. - Repeat colonoscopy for surveillance based on pathology results. - Return to primary care physician as previously scheduled. Nacho Weiner, 11/24/2017 4:01:26 PM This report has been signed electronically. Note Initiated On: 11/24/2017 2:52 PM I attest to the content of the Intraoperative Record and orders documented therein, exceptions below
--- NOTE | 2017-11-24 16:14 | Anesthesiology Progress Note ---
Anesthesia Post Op Note Date & Time Nov 24, 2017 at 16:14 Vital Signs Pain Intensity: 0 Vital Signs Past 12 Hours Date Time Temp Pulse Resp B/P (MAP) Pulse Ox O2 Delivery O2 Flow Rate FiO2 11/24/17 15:58 104 18 114/63 (80) 97 Room Air 11/24/17 14:51 37.0 88 18 140/76 (97) 100 Room Air Notes Mental Status: alert / awake / arousable, participated in evaluation Pt Amnestic to Procedure: Yes Nausea / Vomiting: adequately controlled Pain: adequately controlled Airway Patency, RR, SpO2: stable & adequate BP & HR: stable & adequate Hydration State: stable & adequate Anesthetic Complications: no major complications apparent
[2017-11-24 16:18] VITALS: BP 123/70; PULSE 97; O2SAT 98
== END | disposition home or self-care (01) ==
LOC: C.GI 14:29
PROVIDERS: ATTEND Internal Medicine
DX: R19.7 Diarrhea, unspecified (principal); K21.9 Gastro-esophageal reflux disease without esophagitis

== ENCOUNTER 2021-11-10 05:35 | Inpatient (IN) ==
--- NOTE | 2021-11-05 09:38 | Anesthesiology Consultation ---
Date of Service November 05, 2021 Assessment & Plan (1) Encounter for pre-operative examination: COVID screening: Per assessment on 11/05: Travel screen negative, no known COVID-19 positive contacts or current COVID-19 related symptoms. Patient reports wearing mask "most times." Patient had "lingering cold symptoms" and negative rapid home test 10/31. Surgeon arranging preop COVID testing (scheduled 11/07; [place]). Awaiting results. 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 Verified 11/05/21 07:03 Medications Home Medications Medication Instructions Recorded Confirmed Last Taken vit no.95-ferrous 1 tab PO QAM 11/05/21 11/05/21 Unknown fumarate 28 mg-folic acid 800 mcg tablet () Past Medical History Medical History Asthma Childhood, no current issues History of COVID-19 Dx 09/2020 > Symptoms at time: headache, body aches, loss of taste/smell > symptoms resolved except residual loss of taste/smell History of heartburn History of palpitations Occasional palpitations during , OB aware per pt Thrombocytopenia during Mild/borderline (platelets 120 on 11/02/21 labs) Past Family History Family History Sister Hx of sudden , Onset Age: 30 VLCAD (very long-chain acyl-CoA dehydrogenase deficiency) twin sister Past Surgical History Surgical History H/O wisdom tooth extraction History of section History of colonoscopy History of esophagogastroduodenoscopy (EGD) Social History Smoking Status: Never smoker Do You Dip or Chew Tobacco: No Hx Alcohol Use: No Hx Substance Use: No substance use type: does not use Testing Laboratory Results 11/02/21 WBC 7.84 H/H 12.2/36.5 PLATELETS 120 T&S AB Rh positive RBC antibody screen positive (antibody identification- no new alloantibodies identified) 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 Nothing further needed preoperatively from PAT.
[2021-11-10] MEDS ORDERED: LACTATED RINGER'S 1,000 ML IV SCH ×4 (05:45→09:30)
[2021-11-10] MEDS ORDERED: CITRIC ACID/SODIUM CITRATE 15 ML UDC PO SCH (06:00)
[2021-11-10 06:09] LABS: Basophils # (auto) 0.02 K/uL (0-0.2); Basophils % (auto) 0.3 %; Eosinophils # (auto) 0.04 K/uL (0-0.5); Eosinophils % (auto) 0.5 %; Hematocrit (blood only) 36.1 % (37-47); Hemoglobin 12.3 g/dL (12.0-16.0); Immature Granulocytes # (auto) 0.02 K/uL (0.00-0.02); Immature Granulocytes % (auto) 0.3 %; Mean Corpuscular Hemoglobin 30.5 pg (25-34); Mean Corpuscular Hgb Conc 34.1 g/dL (32-36); Mean Corpuscular Volume 89.6 fL (80-100); Mean Platelet Volume 11.2 fL (7.4-10.4); Monocytes # (auto) 0.69 K/uL (0.11-0.59); Monocytes % (auto) 9.1 %; Neutrophils # (auto) 4.31 K/uL (1.4-6.5); Neutrophils % (auto) 56.8 %; Platelet Count 134 K/uL (130-400); RDW Coefficient of Variation 12.6 % (11.5-14.5); Red Blood Count 4.03 M/uL (4.2-5.4); White Blood Count 7.58 K/uL (4.8-10.8)
[2021-11-10] MEDS ORDERED: fentaNYL citrate 100 MCG/2 ML VIAL ONE (06:43)
[2021-11-10] MEDS ORDERED: OXYTOCIN 10 UNITS/ML 10ML VIAL ONE (06:43)
[2021-11-10] MEDS ORDERED: MoRPHine SULFATE PF 1 MG/ML 10 ML AMP/VIAL ONE (06:43)
[2021-11-10] MEDS ORDERED: ONDANSETRON INJ 2 MG/ML 2 ML VIAL ONE (06:43)
[2021-11-10] MEDS ORDERED: PHENYLEPHRINE 100MCG/ML 5ML SYR ONE (06:43)
[2021-11-10] MEDS ORDERED: ceFAZolin 2000MG 2,000 MG/15 ML SYR IV ONE (06:45)
--- NOTE | 2021-11-10 07:31 | History & Physical Bridge Note ---
Date of Service November 10, 2021 History & Physical Bridge Note I have examined the patient, reviewed the History & Physical and in the interval since the performance of the History & Physical I have noted the following changes of clinical significance: no changes noted Patient desires Tubal sterilization. Discussed it is irreversible and she may regret in the future. It may fail and may have ectopic/ tubal which may require surgery. Discussed noin surgcial reversible contraception options like BCP/ Depo infection, IUD's. She understands all and signed an informed consent for Repeat Csection and Bilateral Tubal Ligation. All questions were answered.
[2021-11-10] MEDS ORDERED: NALBUPHINE HCL INJ 10 MG/ML AMP IV PRN (07:59)
[2021-11-10] MEDS ORDERED: MoRPHine SULFATE PF 1 MG/ML 10 ML AMP/VIAL INT SPINAL ONE (07:59)
[2021-11-10] MEDS ORDERED: NALOXONE HCL 0.4 MG/1 ML VIAL/CARP IV PRN (07:59)
[2021-11-10] MEDS ORDERED: diphenhydrAMINE 50 MG/ML VIAL IV PRN (07:59)
[2021-11-10] MEDS ORDERED: ONDANSETRON INJ 2 MG/ML 2 ML VIAL IV PRN ×2 (07:59→09:21)
[2021-11-10] MEDS ORDERED: ePHEDrine sulfate 50 MG/ML AMP IV PRN (07:59)
[2021-11-10] MEDS ORDERED: NALOXONE HCL 0.08 MG in SYRINGE 1.8 ML IV PRN (07:59)
[2021-11-10] MEDS ORDERED: LACTATED RINGER'S 500 ML IV PRN (07:59)
[2021-11-10] MEDS ORDERED: NALOXONE HCL 1 MG in SODIUM CHLORIDE 0.9% 1000ML 1,000 ML IV PRN (07:59)
[2021-11-10] MEDS ORDERED: MoRPHine SULFATE 2 MG/ML CARP IV PRN (07:59)
[2021-11-10] MEDS ORDERED: SODIUM CHLORIDE 0.9% 1000ML 1,000 ML IV SCH (08:00)
[2021-11-10] MEDS ORDERED: NO NARCOTICS OR SEDATIVES SCH (08:00)
[2021-11-10] MEDS ORDERED: MAGNESIUM HYDROXIDE SUSP 30 ML UDC PO PRN (09:21)
[2021-11-10] MEDS ORDERED: SENNA 8.6 MG TAB PO PRN (09:21)
[2021-11-10] MEDS ORDERED: HYDROCORTISONE ACETATE 25 MG SUPP PR PRN (09:21)
[2021-11-10] MEDS ORDERED: BENZOCAINE 20% AER SPR 82.5 GM CAN EXT PRN (09:21)
[2021-11-10] MEDS ORDERED: MEASLES, MUMPS & RUBELLA VIRUS VIAL SQ ONE (09:21)
[2021-11-10] MEDS ORDERED: SUPERCREAM 0.870% 15 GM JAR EXT PRN (09:21)
[2021-11-10] MEDS ORDERED: DIPHTHERIA/TETANUS/PERTUSSIS 0.5 ML SYR/VIAL IM ONE (09:21)
--- NOTE | 2021-11-10 09:25 | Post Operative Brief Note ---
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
--- NOTE | 2021-11-10 09:34 | Anesthesiology Progress Note ---
Date of Service November 10, 2021 Anesthesia Post Procedure Vital Signs Vital Signs: Temp Pulse Resp BP Pulse Ox 11/10/21 09:28 83 105/72 100 11/10/21 09:23 77 100 11/10/21 09:18 81 118/75 100 11/10/21 05:56 36.7 C 98 H 18 131/85 11/10/21 05:50 36.7 C 98 H 18 131/85 Notes Mental Status: alert / awake / arousable and participated in evaluation Patient Amnestic to Procedure: No Nausea / Vomiting: adequately controlled Pain: adequately controlled Airway Patency, RR, SpO2: stable & adequate BP & HR: stable & adequate Hydration State: stable & adequate Neuraxial Anesthesia: was administered and sensory block is resolving Anesthetic Complications: no major complications apparent and Pt Satisfied with anesthetic care
--- NOTE | 2021-11-10 10:49 | Operative Report (OR) ---
DATE OF SURGERY: 11/10/2021. PREOPERATIVE DIAGNOSES: The patient is a 31-year-old 2, para 1-0-0-1, at 39 weeks and 1 day gestation, who has a history of prior section, electing for a repeat section, declined TOLAC/ (/trial of labor after /vaginal after ), desire for permanent sterilization and declined nonsurgical or reversible contraceptive options. POSTOPERATIVE DIAGNOSES: The patient is a 31-year-old 2, para 1-0-0-1, at 39 weeks and 1 day gestation, who has a history of prior section, electing for a repeat section, declined TOLAC/ (/trial of labor after /vaginal after ), desire for permanent sterilization and declined nonsurgical or reversible contraceptive options. PROCEDURE: Repeat low transverse with Pfannenstiel skin incision and bilateral tubal ligation with Jaylon method. SURGEON: Ashwin Garcia MD. BLASTING MINER: Tayla Muller MD. ESTIMATED BLOOD LOSS: 500 mL. DRAINS: Solorzano catheter drained 150 mL of clear urine. ANESTHESIA: Spinal. ANESTHESIOLOGIST: Dr. Govea. COMPLICATIONS: None. FINDINGS: Baby was a viable female delivered at 8:15 a.m. in cephalic presentation, Apgars were 8/9. Maternal findings: Normal uterus, fallopian tubes, and ovaries. There were some adhesions and scar on the rectus fascia from prior procedure. Bladder flap was over the lower uterine segment, peritoneal window in the posterior lower serosa of the uterus, suggesting from endometriosis, no other signs or lesions of endometriosis noted. DESCRIPTION OF PROCEDURE: The patient was taken to the operating room where spinal anesthesia was given without difficulty. She was placed in dorsal supine position with a leftward tilt. She was prepared and draped in the usual sterile fashion. A Pfannenstiel skin incision was made from the old scar, carried through to the layer of fascia with the Bovie. Fascia was incised in the midline and incision extended laterally with the help of Walker scissors. Upper aspect of the fascial incision was grasped with 2 Jamir clamps, elevated and underlying rectus muscles were dissected off sharply with Walker scissors and bluntly with fingers. There were adhesions and scarring between the fascia and the rectus muscles. Those were reduced carefully. Lower aspect of the fascial incision was grasped with 2 Jamir clamps, elevated and underlying rectus muscles were dissected off sharply with Walker scissors and bluntly with fingers. Again, scars were reduced carefully and the lower edges of the rectus muscles were already open and there were thick vessels seen. Those were avoided. Upper part of the rectal muscle opening was entered and the peritoneum was identified, grasped with pickups, and entered sharply with Metzenbaum scissors and then the peritoneal incision was extended superiorly and inferiorly with good visualization of the bladder. A bladder blade was inserted. The bladder serosa was covering the lower segment of the uterus. It was held up and entered sharply from the avascular area and then bladder was dissected off from the lower uterine segment carefully. A bladder blade was reinserted. Lower uterine segment was intact and normal. It was incised in transverse fashion. The incision was extended laterally with the help of fingers. Membranes were ruptured. Clear fluid was obtained. Baby's head was delivered without difficulty. Shoulders were delivered with minimal traction and the baby was vigorously moving and crying. Cord was clamped x2 and cut at 1 minute delay. Baby was handed off to the waiting pediatric team. Cord blood was obtained. Placenta was delivered spontaneously as intact and complete. Uterus was exteriorized and cleared of all clots and debris. This uterine incision was repaired with 0 Vicryl in a running locked fashion and a second imbricating layer was placed with 0 Vicryl in a running locked fashion. Excellent hemostasis was achieved. Then, the right fallopian tube was identified, grasped with Luiz clamps from an avascular site. Mesosalpinx was entered with 2-0 plain catgut and the tube was tied and then a loop was made around the clamps and tied and another tie was placed under the first tie and then 2-3 cm of tube was excised above the first tie and sent for pathology. It was hemostatic. Then attention was turned to the left fallopian tube, which was held with 2 Luiz clamps from an avascular site. Mesosalpinx was entered with 2-0 plain catgut and tube was tied and then a loop was made around the clamps and tied and another tie was placed under the first tie and then again the fallopian tube above the ties was cut and incised and sent for pathology. Base was hemostatic. Then, the posterior cul-de-sac was irrigated with warm normal saline and suctioned. There was a small peritoneal window on the serosa of the posterior lower uterus and it was hemostatic, and the uterus was returned to the abdomen. Incision was checked to be hemostatic again. Fallopian tubes were checked to be hemostatic. Parietal peritoneum was reapproximated with 0 Vicryl in a running fashion and the rectus muscles were reapproximated with the same suture in a running fashion, and under the fascia and over the rectus muscles were hemostatic and the rectus fascia was reapproximated with 0 Vicryl in a running fashion starting from both corners, meeting in the midline. Subcuticular fat tissue was brought together with 3-0 Vicryl in a running fashion and the skin was closed with 4-0 Monocryl in a subcuticular fashion. The patient tolerated the procedure well. Sponge, lap, needle count was correct x3. No complications happened. I was and Dr. Muller was present during the whole procedure. My primary teaching assistant, Dr. Muller, was needed during surgery for retraction, visualization, hemostasis and aid during delivery of infant. Job ID: [id number] [facility]
[2021-11-10] MEDS: KETOROLAC 30 MG/ML VIAL IV PRN ×2 (11:15→17:23)
[2021-11-10] MEDS: OXYTOCIN 20 UNITS in LACTATED RINGER'S 1,000 ML IV SCH ×2 (11:16→20:17)
[2021-11-10] MEDS ORDERED: FLUARIX QUADRIVALENT 0.5 ML SYR IM ONE (12:00)
[2021-11-10] MEDS: SIMETHICONE 80 MG CHEW PO SCH ×3 (12:45→20:18)
[2021-11-10] MEDS ORDERED: PROMETHAZINE HCL 6.25 MG in SODIUM CHLORIDE 0.9% 50 ML IV PRN (15:19)
[2021-11-10] MEDS: DOCUSATE SODIUM 100 MG CAP PO SCH (20:16)
[2021-11-11] MEDS: KETOROLAC 30 MG/ML VIAL IV PRN (01:56)
[2021-11-11] MEDS ORDERED: DC INTRASPINAL MORPHINE ONE (01:59)
[2021-11-11] MEDS ORDERED: KETOROLAC 30 MG/ML VIAL IV PRN (02:00)
[2021-11-11] MEDS ORDERED: MEPERIDINE HCL 50 MG/ML CARP IV PRN (02:00)
[2021-11-11] MEDS ORDERED: PROMETHAZINE HCL 25 MG in SODIUM CHLORIDE 0.9% 50 ML IV PRN (02:00)
[2021-11-11] MEDS ORDERED: diphenhydrAMINE Capsule 25 MG CAP PO PRN (02:00)
[2021-11-11] MEDS ORDERED: diphenhydrAMINE 50 MG/ML VIAL IV PRN (02:00)
[2021-11-11] MEDS: DOCUSATE SODIUM 100 MG CAP PO SCH (07:59)
[2021-11-11] MEDS ORDERED: PRENATAL VITAMIN 1 TAB PO SCH (08:00)
[2021-11-11] MEDS: oxyCODONE/ACETAMINOPHEN 5mg/325mg TAB PO PRN ×3 (08:00→16:50)
[2021-11-11] MEDS: SIMETHICONE 80 MG CHEW PO SCH ×3 (08:00→15:17)
[2021-11-11] MEDS ORDERED: FERROUS SULFATE 325 MG TAB PO SCH (08:00)
[2021-11-11] MEDS: IBUPROFEN 600 MG TAB PO PRN ×3 (08:01→16:51)
[2021-11-11 08:43] LABS: Eosinophils # (auto) 0.03 K/uL (0-0.5); Eosinophils % (auto) 0.2 %; Hematocrit (blood only) 34.4 % (37-47); Hemoglobin 11.5 g/dL (12.0-16.0); Immature Granulocytes # (auto) 0.03 K/uL (0.00-0.02); Immature Granulocytes % (auto) 0.2 %; Lymphocytes # (auto) 1.84 K/uL (1.2-3.4); Lymphocytes % (auto) 14.5 %; Mean Corpuscular Hemoglobin 30.4 pg (25-34); Mean Corpuscular Hgb Conc 33.4 g/dL (32-36); Mean Platelet Volume 11.4 fL (7.4-10.4); Monocytes # (auto) 0.75 K/uL (0.11-0.59); Monocytes % (auto) 5.9 %; Neutrophils # (auto) 10.01 K/uL (1.4-6.5); Neutrophils % (auto) 79.2 %; Platelet Count 157 K/uL (130-400); RDW Standard Deviation 42.9 fL (36.4-46.3); Red Blood Count 3.78 M/uL (4.2-5.4); White Blood Count 12.66 K/uL (4.8-10.8)
--- NOTE | 2021-11-11 10:27 | Obstetrical Progress Note ---
Date of Service November 11, 2021 Assessment & Plan (1) delivery delivered: Day #1 pt doing well wishes disch home Subjective Ambulation: ambulating normally Voiding: no voiding problems Passing Gas:: Yes Diet Tolerance:: clear liquids Lochia:: Small Feeding Type:: breast feeding Review of Systems All systems reviewed & are unremarkable except as noted in HPI & below Physical Exam Constitutional WD/WN, vitals as above well developed and well nourished Eyes PERRL, conjunctivae normal, anicteric sclerae ENMT external ear and nose normal, oropharynx normal Neck trachea midline, no thyromegaly Respiratory normal respiratory effort, lungs clear to auscultation Cardiovascular RRR, no murmur, no edema Chest (Breasts) normal inspection/palpation of breasts Gastrointestinal (Abdomen) normal bowel sounds, soft, nontender, no hepatosplenomegaly Musculoskeletal no cyanosis or clubbing, extremities motor strength 5/5 Skin no rashes, warm and dry + incision (Clean,dry and intact) Neurologic patellar DTR's 2+ bilat, sensation intact Psychiatric A+Ox3, euthymic affect Genitourinary normal external appearance Lymphatic no cervical or axillary lymphadenopathy Results & Data ([facility]) Vital Signs (Past 12 Hours) Vital Signs Temp Pulse Resp BP Pulse Ox 11/11/21 08:05 36.8 C 82 16 122/78 100 11/11/21 04:05 37.0 C 99 H 18 98/65 L 11/11/21 02:00 18 98 11/11/21 01:00 18 99 11/11/21 00:00 18 97 11/10/21 23:35 36.5 C 82 18 106/68 97 11/10/21 23:00 18 97
[2021-11-11] MEDS ORDERED: bisacodyL 5 MG TABEC PO SCH (20:00)
[2021-11-12] MEDS ORDERED: bisacodyL 10 MG SUPP PR PRN (09:21)
--- NOTE | 2021-11-16 10:52 | Discharge Summary (DS) ---
DATE OF ADMISSION: 11/10/2021 DATE OF DISCHARGE: 11/11/2021 DATE OF SURGERY: 11/10/2021 DETAILS OF ADMISSION: The patient is a 31-year-old G2, P1-0-0-1, at 39 weeks and 1 day of gestation, who has a history of prior . She elected for repeat , declined trial of labor aft er /vaginal after . She also desired permanent sterilization and she was sched uled for repeat with bilateral tubal ligation. She was admitted on 11/10/2021 for a schedu led surgery. She delivered a viable female at 8:15 a.m. in the morning via repeat a nd she also had bilateral tubal ligation. Her surgery was uncomplicated. See dictated OP note for d etails, and on postop period, the patient was doing well, vital signs stable, afebrile. Urine output was adequate and she was continuously observed and on postop day #1, the patient was doing well, vit al signs stable, afebrile. Her H and H was 11.5/34.4. She was ambulating, tolerating regular diet, passing gas and without problems. Her vital signs were stable and she was afebrile. Her physical exam was unremarkable. Her incision was clean, dry and intact. Abdomen was soft, nonte nder, nondistended. Extremities nontender, no edema. Homans' sign negative. She desired to be discharged on 11/11. She was discharged by Dr. Banuelos. Discharge instructions were given. Prescriptions were written for pain. She is to be seen in the office in a week. All questi ons were answered. Job ID: [id number]
== END 2021-11-11 17:15 | disposition home or self-care (01) | DRG 785 ==
LOC: 4S1 05:35 → EDSTATUS 07:30 → 4S2 12:57